=== PATIENT | male | born 1980 ===

== ENCOUNTER 2016-08-03 19:09 | Emergency (ER) | payer SELFPAY ==
[2016-08-03 20:44] VITALS: BP 139/90
== END 2016-08-03 23:45 | disposition left against medical advice (07) ==
LOC: ED 19:09
DX: M54.2 Cervicalgia (principal); M54.9 Dorsalgia, unspecified; M79.671 Pain in right foot; Z53.21 Procedure and treatment not carried out due to patient leaving prior to being seen by health care provider